=== PATIENT | female | born 2000 | race Caucasian/White ===

== ENCOUNTER 2024-12-14 04:14 | Emergency (ER) | payer MEDICAID, SELFPAY ==
[2024-12-14 04:17] VITALS: BP 135/83; PULSE 70; RESP 16; TEMP 36.6; O2SAT 97; BMI 27.4
[2024-12-14 04:22] VITALS: BP 128/74; PULSE 80; RESP 16; TEMP 36.6; O2SAT 98
--- NOTE | 2024-12-14 04:22 | ED_ITS ---
Discharge Plan Disposition Patient Disposition: Home, Self-Care Condition: Good Prescriptions Prescriptions: New amoxicillin-pot clavulanate 875-125 mg tablet 1 tab PO BID Qty: 20 0RF Activity Restrictions/Add. Instructions Additional Instructions/Restrictions: You were evaluated in the ER and are appropriate for discharge at this time. Take the prescribed antibiotics (amoxicillin?clavulanate) as directed, do not skip doses, do not stop taking them early. Take Tylenol and ibuprofen as needed, do not exceed the recommended dose on the bottle, drink water and eat a small snack each time you take these medications to avoid side effects. Use the provided dental balls as directed, 1 hour on, 1 hour off. Do not eat, drink, or sleep with these in place as they could cause you to choke. Follow-up with your dentist tomorrow as scheduled. Return to the ER with new, worsening, or otherwise concerning symptoms. Clinical Impressions Clinical Impression: Pain, dental, Dental infection Discharge ED Provider: Elvia Bond Adult HPI General Chief complaint: Dental/Oral Stated complaint: Mouth Pain Time Seen by Provider: 12/14/24 04:15 Mode of Arrival: EMS Source of Information: Patient and EMS Description of Symptoms (Recalled from ER Triage Doc. by RN): dental pain; has dental appointment in the morning History of Present Illness HPI narrative: 24-year-old female with no known drug allergies, no chronic medical conditions presents to the ER complaining of dental pain. Patient reports being scheduled with the dentist tomorrow. Patient reports a damaged left lower tooth that has been giving her problems but she has been having increasing pain in the last few days and now is having slight facial swelling so she is concerned for abscess. No fevers or chills, no difficulty eating, drinking, or swallowing. No difficulty opening the jaw. No chest pain or difficulty breathing, no numbness, tingling, or weakness, no abdominal pain, nausea, any, diarrhea, or any other associated symptoms. Patient is not currently on any antibiotics. She took 800 mg of ibuprofen 4 hours prior to arrival. Has not take Tylenol. No other complaints or concerns. Related Data Previous Rx's ?Medication ?Instructions ?Recorded amoxicillin 875 mg-potassium 1 tab PO BID #20 tabs 02/28 clavulanate 125 mg tablet Allergies Allergy/AdvReac Type Severity Reaction Status Date / Time No Known Allergies Allergy Verified 12/14/24 04:20 [facility] Disclaimer: The information contained in this section may have been updated after the patient was seen, as this information can be updated by other users. Social History Smoking Status: Current every day smoker tobacco type: e-cigarettes alcohol intake: never current occupational status: other Travel in the last 8 weeks?: None ROS Obtained: Yes Systems reviewed as appropriate & no additional complaints except as documented Per HPI Physical Exam General General appearance: alert and in no apparent distress Head Head exam: atraumatic and normocephalic Eye Eye exam: Present PERRL and EOMI ENT ENT exam: Present mucous membranes moist Expanded ENT Exam Mouth exam: Present tongue normal; Absent trismus or tongue elevation Teeth numbered Image: 2 1. Fractured (Old fracture), Dental Tenderness and Other (Erythematous gingiva at the base with no fluctuance, only minimal swelling, no abscess) Comment: No swelling or woodiness of the floor the mouth, no submandibular swelling or tenderness, no trismus, no lymphadenopathy, tolerating secretions, patent airway Neck Neck exam: Present normal inspection and full ROM Chest Chest inspection: Present symmetric chest wall rise Respiratory Respiratory exam: Present normal lung sounds bilaterally; Absent respiratory distress, wheezes or stridor Cardiovascular Cardiovascular exam: Present regular rate and normal rhythm Abdominal Exam Abdominal exam: Present soft; Absent distention or tenderness Extremities Exam Extremities exam: Present full ROM Neurological Exam Neurological exam: Present alert and oriented X3; Absent motor sensory deficit Psychiatric Psychiatric exam: Present normal affect and normal mood Skin Skin exam: Present warm and dry Medical Decision Making Medical Records Screening: Per USPSTF and CDC recommendations, given the prevalence of disease in our region, it is our hospital?s policy to screen for HIV and viral Hepatitis for all patients aged 18 and over and those with ongoing risk factors. [place] Inquiry Pt receiving controlled substance: No Vital Signs: 12/14/24 04:17 Temperature 97.9 F Temperature Source Temporal Artery Scan Pulse Rate [Right Radial] 70 Respiratory Rate 16 Blood Pressure [Right Arm] 135/83 Blood Pressure Mean [Right Arm] 100 Blood Pressure Source [Right Arm] Automatic Cuff Blood Pressure Position [Right Arm] Supine 02 Sat by Pulse Oximetry 97 Oxygen Delivery Method Room Air Orders (Tests/Meds): ED MEDICATIONS Generic Name Dose Route Start Last Admin Trade Name Byron PRN Reason Stop Dose Admin Acetaminophen 1,000 mg 12/14/24 04:16 Acetaminophen 500mg Tab PO 12/14/24 04:17 ONCE ONE Amoxicillin/Clavulanate Potassium 1 each 12/14/24 04:16 Amoxicillin/Clavulanate Potassium 875/125mg Tablet PO 12/14/24 04:17 ONCE ONE Benzocaine/Butamben/Tetracaine HCl 1 gm 12/14/24 04:16 Tetracaine/Benzocaine/Butamben 56 Gm [place] TP 12/14/24 04:17 ONCE ONE Lidocaine HCl 15 ml 12/14/24 04:16 Lidocaine 2% Viscous Anjana 15ml Udc PO 12/14/24 04:17 ONCE ONE Oxycodone HCl 2.5 mg 12/14/24 04:16 Oxycodone 5mg Immediate Release Tablet PO 12/14/24 04:17 ONCE ONE Medical Decision Narrative: In summary, this 24-year-old female presents to the emergency department today with left lower dental pain. On initial evaluation patient is hemodynamically stable, afebrile, overall well-appearing, the only abnormality appreciated on exam is fractured tooth #19 with erythematous gingiva at the base with only mild swelling but no fluctuance, no abscess. Differential diagnosis includes but is not limited to dental fracture, dental infection, gingivitis, considered abscess but there is no evidence of this clinically. I did also consider Mark's angina but patient has no woodiness or swelling of the floor of the mouth, no submandibular swelling, no sublingual swelling or tenderness, no lymphadenopathy, no trismus, no fevers, patent airway, no stridor, tolerating secretions. No concern for Mark's clinically. I do not believe patient requires any labs or imaging at this time. She was provided a dose of Tylenol, she was complaining of pain keeping her awake and had actually called 911 for her dental pain and brought to the ER by EMS, so I did administer a very small dose of oxycodone to get her through the night until she can call her dentist. I explained that I would not be providing this medication as a prescription. She was also provided dental balls and a dose of Augmentin. Dental balls were provided to the patient with instructions on how to use these at home including to not sleep, eat, or drink with these in place due to choking hazard. She was also provided prescription for Augmentin. Narcotic pain medication was not prescribed to the patient. She states she is going to have follow-up with her dentist tomorrow which I believe is reasonable. She is appropriate for discharge at this time and comfortable with this plan. Airway remains patent, she is still well-appearing. Tolerated medications well. She was given instructions on continued symptomatic monitoring and management, instructions for home use of medications, follow-up instructions, and strict return precautions for the ER. She indicated understanding and the patient was discharged in stable condition peer Critical Care Critical Care Time Critical Care Time: No
[2024-12-14] MEDS: LIDOCAINE 2% VISCOUS SOL 15ML UDC 15 ML PO (04:25)
[2024-12-14] MEDS: OXYCODONE 5MG IMMEDIATE RELEASE TABLET 2.5 MG PO (04:25)
[2024-12-14] MEDS: TETRACAINE/BENZOCAINE/BUTAMBEN 56 GM SPRAY TP (04:25)
[2024-12-14] MEDS: ACETAMINOPHEN 500MG TAB 1000 MG PO (04:25)
[2024-12-14] MEDS: AMOXICILLIN/CLAVULANATE POTASSIUM 875/125MG TABLET 1 EACH PO (04:26)
--- OUTSIDE RECORDS SUMMARY | 2024-12-14 04:33 | XMS_ITS | Clinical Summary ---
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 Role Phone Luke Carranza APRN Primary Care Provider [phone] Social History Tobacco Use Types Packs/Day Years Used Date Smoking Tobacco: Never Assessed Comments Unknown Sex and Gender Information Value Date Recorded Sex Assigned at Not on file Legal Sex Female 11:26 AM EDT Gender Identity Not on file Sexual Orientation Not on file Plan of Treatment Health Maintenance Due Date Last Done Comments Depression Screen 2012 HIV screen 10/03/2015 Chlamydia/GC screen 2016 Hepatitis C screen 2018 Pap smear 2021 COVID-19 Vaccine ( season) 2024 Flu vaccine (#1) 12/05/2024 DTaP/Tdap/Td vaccine (8 - Td or Tdap) 04/24/2027 04/24/2017, 11/15/2011, 11/15/2011, Additional history exists Pneumococcal 0-49 years Vaccine Completed 12/27/2001, 07/17/2001, 02/06/2001, Additional history exists Hepatitis B vaccine Completed 06/03/2002, 2000, 2000 Hib vaccine Completed 06/05/2002, 07/2000, 2000 Varicella vaccine Completed 11/15/2011, 12/27/2001 Polio vaccine Completed 12/14/2014, 08/2000, 02/06/2001, Additional history exists Meningococcal (ACWY) vaccine Completed 04/24/2017, 11/15/2011 HPV vaccine Completed 04/11/2018, 10/04/2012 Hepatitis A vaccine Completed 04/11/2018, 3 Meningococcal B vaccine Aged Out No l onger eligible based on patient's age to complete this topic [place] [address] Care Teams Reeling Machine Operator Relationship Specialty Start Date End Date Luke Carranza APRN [address] [place] [id number] PCP - General Nurse Practitioner 07/24/23
== END 2024-12-14 04:25 | disposition home or self-care (01) ==
LOC: ER 04:31
PROVIDERS: Emergency Provider Emergency Medicine
DX: R22.0 Localized swelling, mass and lump, head (principal); K04.7 Periapical abscess without sinus; K08.89 Other specified disorders of teeth and supporting structures; F17.200 Nicotine dependence, unspecified, uncomplicated
CPT/HCPCS: 99283